=== PATIENT | female | born 1945 | race Caucasian/White ===

== ENCOUNTER 2019-10-07 15:44 | Emergency (ER) | payer MEDICARE ==
[2019-10-07 16:23] LABS: #Eosinphils 0.1 thou/uL (0.0-0.7); #Lymphocytes 1.3 thou/uL (1.20-3.40); #Monocytes 0.3 thou/uL (0.11-0.59); #Neutrophils 3.9 thou/uL (1.40-6.50); %Basophils 0.7 % (0.0-1.0); %Lymphocytes 22.7 % (21.0-51.0); %Monocytes 5.9 % (0.0-10.0); %Neutrophils 69.8 % (42.0-75.0); Hemoglobin 13.9 g/dL (12.0-16.0); Mean Corpuscular HGB CONC 32.7 g/dL (32.0-36.0); Mean Corpuscular Hemoglobin 30.9 pg (27.0-31.0); Mean Corpuscular Volume 94.6 fL (78.0-98.0); Mean Platelet Volume 6.5 fL (7.4-10.4); Platelet Count 296 thou/uL (130-400); RBC Distribution Width 13.2 % (11.5-14.5); Red Blood Cell (RBC) Count 4.48 mill/uL (4.20-5.40); White Blood Cell (WBC) Count 5.6 thou/uL (4.8-10.8)
--- NOTE | 2019-10-07 16:34 | RAD ---
CHEST ONE VIEW: 10/07/19 HISTORY: Lung cancer. Mets to brain. Dizziness. COMPARISON: None. FINDINGS: There is fullness of the right hilum. No pneumothorax. No effusion. No confluent air space consolida tion. Port catheter tip mid SVC. IMPRESSION: 1. No acute intrathoracic abnormality. 2. Fullness in the right hilum. Recommend correlation with prior imaging for patient's known his tory of lung cancer. POS: HOME
[2019-10-07 16:50] LABS: ALT (SGPT) 18 U/L (8-55); AST (SGOT) 16 U/L (5-34); Albumin 3.6 g/dL (3.4-4.8); Alkaline Phosphatase 48 U/L (40-110); Anion Gap 13 mmol/L (10-20); BUN (Urea Nitrogen) 10 mg/dL (9.8-20.1); Bilirubin, Total 0.8 mg/dL (0.2-1.2); CK (CPK) 22 U/L (29-168); Calc. Creatinine Clearance 0 mL/min (70-130); Calcium 8.8 mg/dL (7.8-10.44); Carbon Dioxide 26 mmol/L (23-31); Chloride 103 mmol/L (98-107); Estimated GFR-MDRD 75; Globulin 2.6 g/dL (2.4-3.5); Glucose 149 mg/dL (83-110); Potassium 3.3 mmol/L (3.5-5.1); Protein, Total 6.2 g/dL (6.0-8.3); Sodium 139 mmol/L (136-145)
--- NOTE | 2019-10-07 17:01 | CT ---
CT OF THE BRAIN WITHOUT CONTRAST: 10/07/19 COMPARISON: None. 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 The patient has had declining mental status and dizziness recently. TECHNIQUE: Multiple contiguous axial images were obtained in a CT of the brain without contrast. FINDINGS: There are a few hypodensities in the subcortical and periventricular white matter. These are nonspeci fic and could be secondary to metastatic lesions or mass vessel ischemic disease. No large confluent infarction is seen. There is no evidence of hydrocephalus, intracranial hemorrhage, or extra-axial f luid collections. The calvarium and overlying soft tissues are unremarkable. The visualized paranasal sinuses and masto id air cells are well aerated. IMPRESSION: 1. No evidence of acute intracranial abnormality. 2. The hyperdensities in the white matter may be secondary to small vessel ischemic disease or m etastatic disease. An MRI of the brain would be much more sensitive for detection of intracranial met astatic disease. POS: [facility]
[2019-10-07 17:15] LABS: Bilirubin 1+ (Negative); Blood, Urine Negative (Negative); Clarity Turbid (Clear); Glucose, Urine (Dipstick) 30 mg/dL (Negative); Leukocyte 250 Leu/uL (Negative); Nitrite Negative (Negative); Protein, Urine (Dipstick) 70 mg/dL (Neg-Trace); Urobilinogen 3 mg/dL (Less than 2)
[2019-10-07 17:16] LABS: Benzodiazepine Screen Detected (NotDetected); Medtox Reader # READER 4; Squamous Epithelial 0-3 HPF (0-3)
[2019-10-07 17:17] LABS: Amphetamine Not Detected (NotDetected); Barbiturates Screen Not Detected (NotDetected); Cocaine Metabolite Screen Not Detected (NotDetected); Medtox Control Line Valid? VALID (VALID); Methadone Not Detected (NotDetected); Methamphetamine Not Detected (NotDetected); Opiate Screen Not Detected (NotDetected); Oxycodone Screen Not Detected (NotDetected); Phencyclidine (PCP) Not Detected (NotDetected); THC/Cannabinoid Screen Not Detected (NotDetected); Tricyclic Screen Not Detected (NotDetected)
[2019-10-07 17:29] LABS: RBC/HPF 0-3 HPF (0-3)
[2019-10-07 17:30] LABS: Bacteria/HPF None Seen HPF (None Seen); Mucous/LPF 2+ LPF (<2+)
--- NOTE | 2019-10-08 16:10 | EKG ---
Test Reason : Blood Pressure : / mmHG Vent. Rate : 106 BPM Atrial Rate : 106 BPM P-R Int : 132 ms QRS Dur : 072 ms QT Int : 334 ms P-R-T Axes : 068 -50 072 degrees QTc Int : 443 ms Sinus tachycardia Left anterior fascicular block Inferior infarct , age undetermined Cannot rule out Anterior infarct , age undetermined Abnormal ECG Confirmed by LALIT MONTAÑO DO ([id number]), school photograph editor ALEX POZO ([id number]) on 10/08/2019 4:09:17 PM Referred By: Confirmed By:LLAIT MONTAÑO DO
== END 2019-10-07 18:56 | disposition home or self-care (01) ==
LOC: ERS 15:44
DX: R41.82 Altered mental status, unspecified (principal); C34.90 Malignant neoplasm of unspecified part of unspecified bronchus or lung; F32.9 Major depressive disorder, single episode, unspecified; F41.9 Anxiety disorder, unspecified; Z87.891 Personal history of nicotine dependence
CPT/HCPCS: 36415; 51701; 70450; 71045; 80053; 80306; 81003; 81015; 82550; 84484; 85025; 93005; A4353

== ENCOUNTER 2019-10-21 09:11 | Outpatient (CLI) | payer MEDICARE, OTHER ==
[~2019-10-21 09:11] MED LIST: Iopamidol 370 76% 100 ML VIAL ONE; Magnevist 469MG/ML 20 ML VIAL ONE
--- NOTE | 2019-10-21 11:42 | MRI ---
MRI BRAIN WITH AND WITHOUT CONTRAST: DATE: 10/21/2019 HISTORY: 74-year-old female with lung cancer, ICD-10: "C 34.31 malignant neoplasm of lower lobe, right bronchu s or lung. " COMPARISON: none available. The order states "patient will hand carry disc of previous imaging for radiologist to compare" from " [facility] date 06/19/2019" The patient did not have a disc from other hospital. TECHNIQUE: Multiplanar, multisequence MRI of the brain performed pre- and post-IV injection of gadolinium based contrast agent. FINDINGS: In the left lateral frontal lobe centered at the ribera-white junction, there is a heterogeneously enha ncing, approximately 1.7 x 1.4 x 1.4 cm intra-axial mass. It is predominantly solid, but there is a small peripheral crescentic cystic component. There is a small amount of vasogenic edema around the m ass. This mass is not hemorrhagic, but it does have restricted diffusion. The restricted diffusion is suggestive of high nucleus to cytoplasm ratio, often seen with small round blue cell tumors such a s small cell carcinoma. At the left lateral posterior temporal lobe near the junction with the parietal and occipital lobes, there is a 0.7 x 0.7 x 0.7 cm solid intra-axial mass with small amount of surrounding vasogenic edema, and slightly restricted diffusion, and no hemorrhage. No other enhancing intra-axial masses are visualized. No mass effect or midline shift. Ventricles are normal in size and configuration. Small patchy signal abnormalities involving anterior limbs of bilateral internal capsules and right external capsule are consistent with chronic ischemic white mat ter changes and-or small old lacunar infarctions. Very small focal signal abnormalities in the bilateral centrum semiovale and berger radiata consistent with mild chronic ischemic white matter neo nges. No dural venous sinus thrombosis. There is proteinaceous fluid in many of the right mastoid air cells. IMPRESSION: 1. 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 2. There is no associated mass effect or hemorrhage, and only mild surrounding vasogenic edema. 3. Small old lacunar infarctions and/or chronic ischemic white matter changes of bilateral internal c apsules and right external capsule. 4. Right mastoid effusion.
--- NOTE | 2019-10-21 14:30 | CT ---
CT OF THE CHEST, ABDOMEN, AND PELVIS WITH IV CONTRAST: 10/21/19 INDICATION: 74-year-old female with history of lung cancer. The patient was reportedly to deliver an outside disc providing images from prior CT evaluation of th e chest, abdomen and pelvis; patient did not have a disc or know anything about the comparison examin ation. The patient is unsure of why the exam is being performed. Patient does have a history of prior lung cancer. COMPARISON: Left lower extremity Doppler venous ultrasound dated 10/08/19 and chest radiograph dated 10/07/19. FINDINGS: CHEST: There is a hazy area of scarring and ground glass nodular opacity seen within the right upper lobe on image 15 of series 3 measuring 1.5 cm. No additional suspicious pulmonary nodule is evident. There i s a sub 4 mm pulmonary nodule in the right posterolateral lower lobe on image 47 of series 3. There i s sub 4 mm, subpleural pulmonary nodule within the superior segment of the right lower lobe on image 23 of series 3. There is prominent lymphadenopathy of the right hilar region. One of the largest lymph nodes is seen superiorly within the right hilar region measuring 1.9 cm. There is a subcarinal lymph node measuring 1.8 cm. There is a precarinal lymph node measuring 1.7 cm. ABDOMEN/PELVIS: There is a hypodense mass within segment 7 of the right hepatic lobe measuring 1.6 cm. An additional lesion is seen within segment VIII of the right hepatic lobe on image 53 of series 2. There is a simp le cyst seen within segment IIB of the left hepatic lobe on image 64 of series 2. There are bilateral adrenal nodules. The right adrenal nodule within the body measures 1.1 cm. The le ft adrenal nodule within the left lateral limb measures 9 mm. No focal renal lesions evident. The vis ualized pancreas and spleen are normal appearing. No pathologically enlarged lymph nodes evident. There is marked intraluminal thrombus seen within the left common iliac and left external iliac and left femoral veins. This was better seen on a left low er extremity venous Doppler ultrasound dated 10/08/19. Small and large bowel appear within normal limits. The bladder is decompressed. The reproductive stru ctures are surgically absent. There are moderate to severe calcifications noted involving the abdomin al and pelvic vasculature. There are osteoblastic lesions involving the right aspect of the T2 vertebral body as well as the T5 vertebral body. There is thoracolumbar scoliosis with diffuse osteopenia. IMPRESSION: 1. Scarring with some residual ground glass opacity within the right upper lobe may reflect site of the patient's primary lung malignancy reported. Recommend correlation with prior examination if a vailable. 2. Prominent right hilar, subcarinal, and precarinal mediastinal lymphadenopathy likely related to malignant lymph node spread of disease. Hypodense masses involving the right hepatic dome suspicio us for hepatic metastatic lesions. There are also nodular lesions involving both adrenal glands, also suspicious for metastatic disease. 3. Sclerotic lesions involving the right T2 as well as the T5 vertebral body most consistent wit h osteoblastic metastatic disease. 4. Left lower extremity DVT. POS: [facility]
== END 2019-10-21 09:12 | disposition home or self-care (01) ==
LOC: CT 09:11
PROVIDERS: ATTEND Internal Medicine Hematology & Oncology
DX: C34.31 Malignant neoplasm of lower lobe, right bronchus or lung (principal); C79.31 Secondary malignant neoplasm of brain; R91.8 Other nonspecific abnormal finding of lung field; R59.0 Localized enlarged lymph nodes; K76.89 Other specified diseases of liver; E27.8 Other specified disorders of adrenal gland; M89.9 Disorder of bone, unspecified; I82.402 Acute embolism and thrombosis of unspecified deep veins of left lower extremity; R60.0 Localized edema; H74.8X1 Other specified disorders of right middle ear and mastoid
CPT/HCPCS: 70553; 71260; 74177; A9579; Q9967